=== PATIENT | female | born 1955 | race Caucasian/White ===

== ENCOUNTER 2024-01-13 11:25 | Observation (INO) | payer MEDICARE, SELFPAY ==
[2024-01-13] VITALS (25 sets, daily range): BP systolic 131–166; BP diastolic 54–116; PULSE 55–149; RESP 14–27; TEMP 36.1–36.5; O2SAT 94–100; BMI 35.9
--- NOTE | ~2024-01-13 | XR_ITS ---
EXAMINATION: XR chest 2V DATE: 01/13/2024 12:34 INDICATION: Centralized chest pain and heaviness TECHNIQUE: PA and lateral views of the chest were obtained. COMPARISON: None FINDINGS: Opacities at the lower lung zones on the frontal projection appear to correspond to a prominent parac ardial fat pads on the lateral projection. No other airspace opacities, pulmonary edema, pleural effu vladislav or pneumothorax. Heart size is normal. Median sternotomy wires and mediastinal surgical clips ar e seen, likely from prior coronary artery bypass grafting. Moderate thoracic and lumbar spondylosis. IMPRESSION: 1. Opacities at the anterior lower lung zones most likely related to prominent bilateral paracardial fat pads. No other acute cardiopulmonary disease. Reviewed, dictated and finalized at location B.
--- NOTE | 2024-01-13 11:26 | ECG_ITS ---
SEE SCANNED COPY FOR CONFIRMED REPORT MTDD
[2024-01-13 11:57] LABS: Basophils Absolute Auto 0.1 K/mm3 (0.0-0.1); Basophils Percent Auto 0.5 % (0.2-1.2); Eosinophils Absolute Auto 0.2 K/mm3 (0-0.3); Eosinophils Percent Auto 2.3 % (0-4.4); Hematocrit 41.6 % (37.0-47.0); Hemoglobin 13.3 g/dL (12.0-15.0); Immature Granulocyte Absolute 0.02 K/mm3 (0.00-0.031); Immature Granulocyte Percent A 0.2 % (0-0.5); Lymphocytes Absolute Auto 3.17 K/mm3 (0.9-3.2); Lymphocytes Percent Auto 33.5 % (18.3-44.2); Mean Corpuscular Hemoglobin 29.6 pg (26-34); Mean Corpuscular Volume 92.4 fl (80-100); Mean Platelet Volume 11.2 fl (7.4-10.4); Monocytes Absolute Auto 0.9 K/mm3 (0.1-0.6); Monocytes Percent Auto 9.4 % (2.6-8.5); Neutrophils Absolute Auto 5.1 K/mm3 (1.3-6.7); Neutrophils Percent Auto 54.1 % (45.5-73.1); Platelet Count Result 206 k/mm3 (150-375); Red Cell Distribution Width 12.5 % (11.5-14.5); White Blood Count 9.5 K/mm3 (4.5-10.0)
--- NOTE | 2024-01-13 12:06 | ED.CHESTPAIN ---
HPI - Chest Pain General Chief Complaint: Chest Pain Stated Complaint: chest pain Time Seen by Provider: 01/13/24 11:52 Source: patient History of Present Illness HPI narrative: 68-year-old female presenting for palpitations, feeling chest tightness for 3 hours now. History of AFib in the past. Thinks that maybe what is going on. Also history of CABG x5. No shortness of breath. Related Data Allergies Allergy/AdvReac Type Severity Reaction Status Date / Time Tetanus Vaccines and Toxoid Allergy Unknown Verified 01/13/24 13:02 Review of Systems Review of Systems: All systems reviewed & are unremarkable except as noted in HPI and below Exam Narrative: Constitutional: Generally well appearing, no acute distress Head: Atraumatic, no deformities. Eyes: Pupils equal, round, and reactive to light. Neck: Supple, no tracheal deviation, no JVD. ENMT: Mucous membranes moist Cardiovascular: S1, S2 auscultated. No murmurs, rubs, or gallops. No S3/S4. Normal Distal pulses. No peripheral edema. Respiratory: Lung sounds equal. No wheezes, rales, or rhonchi. Gastrointestinal: Abdomen was soft and non-tender. Non-distended. No rebound or guarding. Genitourinary: Deferred Musculoskeletal: Normal muscle tone and bulk. No obvious deformities or tenderness over extremities. Skin: No rashes. Neurological: Strength 5/5 in extremities. Cranial nerves I-XII grossly intact. Distal sensation intact. Mental Status: Awake, alert and oriented x3. Follows commands Course Vital Signs Vital signs: Vital Signs Temperature 36.5 C 01/13/24 11:26 Pulse Rate 62 01/13/24 11:26 Respiratory Rate 16 01/13/24 11:26 Blood Pressure 156/105 H 01/13/24 11:26 Pulse Oximetry 96 01/13/24 11:26 Temperature 36.5 C 01/13/24 11:26 Pulse Rate 130 H 01/13/24 11:51 Respiratory Rate 19 01/13/24 11:47 Blood Pressure 131/84 01/13/24 11:47 Pulse Oximetry 97 01/13/24 11:51 Oxygen Delivery Room Air 01/13/24 11:51 MDM - Chest Pain MDM Narrative Medical decision making narrative: 68-year-old female presenting for chest tightness, pressure, and concerns for AFib. On exam she is significantly tachycardic ranging from 130-150. Irregularly irregular. EKG confirms atrial flutter with RVR. EKG obtained at 11:29 a.m. showing atrial flutter with rapid ventricular response, rate 145, no ST elevation or depression. Normal axis. Impression: AFib with RVR Attending cardiac workup. IV established. Started IV fluids. Her blood pressure is stable. Planning for Cardizem bolus and drip. 1300-per nursing staff, patient's heart rate is normalized to sinus rhythm at a rate of 65 after she got out of the bathroom. EKG repeated in confirms. EKG obtained at 12:53 p.m. shows sinus rhythm, normal intervals, no ST elevation or depression. No T-wave changes. Impression: No STEMI Holding off on Cardizem at this point. Will admit to hospitalist for atrial flutter with RVR for observation as well as elevated troponin which came back elevated Lab Data 01/13/24 11:36 01/13/24 11:36 Labs: Lab Results 01/13/24 Range/Units 11:36 WBC 9.5 (4.5-10.0) K/mm3 RBC 4.50 (4.2-5.4) M/mm3 Hgb 13.3 (12.0-15.0) g/dL Hct 41.6 (37.0-47.0) % MCV 92.4 (80-100) fl MCH 29.6 (26-34) pg MCHC 32.0 (32-36) g/dl RDW 12.5 (11.5-14.5) % Plt Count 206 (150-375) k/mm3 MPV 11.2 H (7.4-10.4) fl Immature Gran % (Auto) 0.2 (0-0.5) % Neut % (Auto) 54.1 (45.5-73.1) % Lymph % (Auto) 33.5 (18.3-44.2) % [place] % (Auto) 9.4 H (2.6-8.5) % Eos % (Auto) 2.3 (0-4.4) % Baso % (Auto) 0.5 (0.2-1.2) % Lymph # (Auto) 3.17 (0.9-3.2) K/mm3 [place] # (Auto) 0.9 H (0.1-0.6) K/mm3 Eos # (Auto) 0.2 (0-0.3) K/mm3 Baso # (Auto) 0.1 (0.0-0.1) K/mm3 Abs Immat Gran (auto) 0.02 (0.00-0.031) K/mm3 Absolute Neuts (auto) 5.1 (1.3-6.7) K/mm3 Absolute Nucleated RBC 0.000 (0.0-0.012) K/mm3 Nucleated RBC % 0
[2024-01-13 12:10] LABS: INR 1.1; Prothrombin Time 14.5 Seconds (11.1-14.7)
[2024-01-13 12:11] LABS: Partial Thromboplastin Time 28.8 Seconds (22.3-36.8)
[2024-01-13 12:12] LABS: Alanine Aminotransferase 21 U/L (6-35); Albumin Level 4.5 g/dL (3.5-5.1); Alkaline Phosphatase 94 U/L (38-126); Anion Gap 8 mmol/L (4-12); Aspartate Amino Transferase 22 U/L (14-36); Bilirubin,Total 1.2 mg/dL (0.2-1.3); Blood Urea Nitrogen 15 mg/dL (7-17); Calcium 9.4 mg/dL (8.4-10.2); Carbon Dioxide 25 mmol/L (22-30); Chloride 106 mmol/L (98-107); Estimated CRCL calculation 62 ml/min; Estimated Glomerular Filt Rate > 60; Glucose 108 mg/dL (65-110); Lipase 119 U/L (23-300); Potassium 3.5 mmol/L (3.4-5.0); Sodium 139 mmol/L (137-145)
[2024-01-13 12:35] LABS: Troponin I 0.068 ng/mL (0.000-0.034)
[2024-01-13] MEDS: ASPIRIN 81 MG CHEWABLE TABLET 324 MG PO (13:00)
--- NOTE | 2024-01-13 13:01 | ECG_ITS ---
SEE SCANNED COPY FOR CONFIRMED REPORT MTDD
--- NOTE | 2024-01-13 15:03 | ECG_ITS ---
SEE SCANNED COPY FOR CONFIRMED REPORT MTDD
[2024-01-13] MEDS: dilTIAZem HCl INJ 25 MG/5 ML VIAL 10 MG IV PUSH (19:03)
[2024-01-13] MEDS: dilTIAZem 100 MG/100 ML 100 MG/100 ML BAG IV CONT (19:05)
--- NOTE | 2024-01-13 19:10 | PC.NURSE ---
PT WITH C/O PALPITATIONS. NOTED RHYTHM CHANGE, EKG OBTAINED AND SHOWN TO DR COSTA. ORDER FOR DILT OBTAINED AND GIVEN.
--- NOTE | 2024-01-13 19:20 | PC.NURSE ---
DR MERIDA PAGED AND MADE AWARE OF RHYTHM CHANGE AND MEDS GIVEN.
[2024-01-13 19:47] LABS: Troponin I 0.068 ng/mL (0.000-0.034)
--- NOTE | 2024-01-13 21:14 | ADMGEN ---
This patient, Olimpia Farooq, was admitted to IMU Room 212-01 at 2100. Patient/family oriented to hospital policies and general routines including ID bracelet, bed and alarms, visiting hours, pain management, procedures, bathroom and other care routines, personal items, smoking policy, room service/diet, and visiting hours. Information on how to activate the Rapid Response Team has been discussed. Patient/Family are encouraged to report perceived risks to care and to ask questions if they do not understand what they are told or what they should do.
--- NOTE | 2024-01-13 22:32 | PM.IMHP ---
H&P: HPI History of Present Illness Date/Time: 01/13/24 22:32 Chief Complaint: Chest Discomfort Narrative: 68 y/o F presents here with chest discomfort with PMH of CAD, CABG x5, anxiety, prolapsed uterus, ocular histoplasmosis, and AFib postoperative. Patient presented here for further evaluation of palpitations and chest tightness. Patient reported that symptoms began 1 hour prior to arrival to the emergency department, approximately at 10 a.m. and arrived to the ED around 11 am. Patient had similar episode on (December 2023) and HR was 150's and blood pressure was elevated (160/90), and lasted for approximately 3 hours. Resolved with extra dose of her home metoprolol. Patient was resting when the palpitations started today. Some associated shortness of breath (has some SOB at baseline with ambulating long distances). Denying diaphoresis, nausea, vomiting, syncope, sense of doom, fatigue, or weakness. Patient does have history of AFib postoperatively after she had the CABG x5 performed 10 years ago at [facility], was placed on amiodarone for 2 weeks and never had additional episode or treatment. Chest tightness/palpitations resolved spontaneously during ED workup, did not have BM prior to yarsani into NSR. Patient back into AFib RVR around 1900 and placed on diltiazem gtt. No recurrent chest pain or palpitations since drip initiated. Patient not on a blood thinner. Initial VS at presentation: 97.7? F, HR 62, RR 16, 156/105, and 96% on RA. Heart rate varied initially between 62-149. ED workup showed: No leukocytosis, no anemia, no significant electrolyte derangements, creatinine 0.8, and initial troponin 0.068. CXR showed opacities at the anterior lower lung zones most likely related to prominent bilateral pericardial fat pads. No other acute cardiopulmonary disease. Initial EKG showed AFib RVR with rate of 145, no ST elevation or depression, normal axis. Review of Systems Review of Systems: All systems reviewed & are unremarkable except as noted in HPI and below [facility] Past Medical History Medical History (Updated 01/14/24 @ 01:10 by Anjana Ring APRN) Afib postoperative from CABG Anxiety CAD (coronary artery disease) Ocular histoplasmosis Prolapsed uterus Surgical History Surgical History History of coronary artery bypass graft Social History Social History Smoking status: Never smoker Alcohol intake: never Substance use: never Do You Feel Safe in your Home?: Yes Lack of Transportation: YES Lack of Food: Never True Current Housing: I Have Housing Concerned About Future Housing: No Difficulty Paying Gas/Electric Bills: No Difficulty Paying for Meds: No Currently Unemployed: No Education: Associate Degree Difficulty w/ Childcare or Family Care: No Spiritual care concerns: No Meds Home Medications and Allergies Home Medications Medication Instructions Recorded Confirmed Type atorvastatin 10 mg tablet 10 mg PO DAILY 01/13/24 01/13/24 History ergocalciferol (vitamin D2) 1,250 50,000 unit PO WEEKLY 01/13/24 01/13/24 History mcg (50,000 unit) capsule metoprolol tartrate 25 mg tablet 25 mg PO BID 01/13/24 01/13/24 History Allergies Allergy/AdvReac Type Severity Reaction Status Date / Time Tetanus Vaccines and Toxoid Allergy Unknown Verified 01/13/24 13:02 Vital Signs Vital Signs - 24 hr 01/13/24 11:26 01/13/24 11:47 01/13/24 11:51 Temperature 97.7 F Pulse Rate 62 114 H 130 H Respiratory Rate 16 19 Blood Pressure 156/105 H 131/84 Pulse Oximetry 96 95 Oxygen Delivery 01/13/24 11:51 01/13/24 11:50 01/13/24 12:00 Temperature Pulse Rate 149 H 71 Respiratory Rate 21 H 27 H Blood Pressure Pulse Oximetry 97 97 Oxygen Delivery Room Air 01/13/24 12:01 01/13/24 12:15 01/13/24 12:45 Temperature
[2024-01-14] VITALS (10 sets, daily range): BP systolic 108–140; BP diastolic 39–61; PULSE 60–84; RESP 16–18; TEMP 36.1–36.3; O2SAT 94–99
--- NOTE | 2024-01-14 | ECHO_ITS ---
Patient Info Name: Olimpia Farooq Age: 68 years : 1955 Gender: Female Ht: 61 in Wt: 190 lbs BSA: 1.97 m2 HR: 60 bpm BP: 108 / 39 mmHg Heart Rhythm: Sinus Rhythm Technical Quality: Fair Exam Date: 01/14/2024 10:29 AM Exam Location: Echo Lab Patient Status: Outpatient Admit Date: 01/13/2024 Staff Ordering Physician: Anjana Ring APRN Manager Of Sales: Patti Haddad RDCS Attending Provider: Antelmo Gil DO Referring Physician: María Elena PATEL; Exam Type: CA echo doppler color flow Study Info Indications - afib, elevated troponin Complete two-dimensional, color flow and Doppler transthoracic echocardiogram is performed. Summary 1. Complete two-dimensional, color flow and Doppler transthoracic echocardiogram is performed. 2. Normal left ventricular size, thickness and systolic contractility. 3. Modest left atrial enlargement. 4. Mild mitral annular calcium with trivial MR. 5. Trivial aortic regurgitation. Left Ventricle Left ventricular chamber dimension is normal. Left ventricular systolic function is normal, estimated at 65-70%. The left ventricular diastolic function is normal. Right Ventricle Right ventricular chamber dimension is normal. Left Atria Left atrial chamber dimension is mildly enlarged. Right Atria Right atrial chamber dimension is mildly enlarged. Aortic Valve The aortic valve is trileaflet. There is trace aortic valve regurgitation. Pulmonic Valve The pulmonic valve is not well visualized. Mitral Valve The mitral valve has normal leaflets. There is trace mitral valve regurgitation. The mitral valve annulus is mildly calcified. Tricuspid Valve The tricuspid valve leaflets are normal. There is trace tricuspid valve regurgitation. Pericardium/Pleural The pericardium appears normal. Aorta The aortic root size at the sinus of Valsalva is normal. Left Ventricular Outflow Tract Name Value Normal LVOT 2D LVOT Diameter 2.0 cm LVOT Doppler LVOT Peak Gradient 5 mmHg LVOT Mean Gradient 2 mmHg LVOT VTI 25 cm LVOT VTI/AV VTI Ratio 0.8 LVOT Stroke Volume 76 ml LVOT CO 4.2 l/min LVOT CI 2.2 l/min/m2 Pulmonic Valve Name Value Normal RVOT Doppler RVOT Peak Gradient 1 mmHg PV Doppler PV Peak Gradient 3 mmHg Mitral Valve Name Value Normal MV Doppler MV [place] 703 cm/s2 MV PHT
[2024-01-14 04:20] LABS: Basophils Percent Auto 0.4 % (0.2-1.2); Eosinophils Absolute Auto 0.3 K/mm3 (0-0.3); Eosinophils Percent Auto 3.1 % (0-4.4); Immature Granulocyte Absolute 0.03 K/mm3 (0.00-0.031); Immature Granulocyte Percent A 0.3 % (0-0.5); Lymphocytes Absolute Auto 2.68 K/mm3 (0.9-3.2); Lymphocytes Percent Auto 30.1 % (18.3-44.2); Mean Corpuscular HGB Conc 32.4 g/dl (32-36); Mean Corpuscular Hemoglobin 29.8 pg (26-34); Mean Corpuscular Volume 91.8 fl (80-100); Mean Platelet Volume 11.2 fl (7.4-10.4); Monocytes Absolute Auto 0.9 K/mm3 (0.1-0.6); Monocytes Percent Auto 9.9 % (2.6-8.5); Neutrophils Percent Auto 56.2 % (45.5-73.1); Platelet Count Result 186 k/mm3 (150-375); Red Blood Count 4.03 M/mm3 (4.2-5.4); Red Cell Distribution Width 12.7 % (11.5-14.5); White Blood Count 8.9 K/mm3 (4.5-10.0)
[2024-01-14 04:27] LABS: Alanine Aminotransferase 18 U/L (6-35); Albumin Level 3.7 g/dL (3.5-5.1); Alkaline Phosphatase 85 U/L (38-126); Anion Gap 2 mmol/L (4-12); Aspartate Amino Transferase 21 U/L (14-36); Bilirubin,Total 0.9 mg/dL (0.2-1.3); Blood Urea Nitrogen 15 mg/dL (7-17); Calcium 8.8 mg/dL (8.4-10.2); Carbon Dioxide 28 mmol/L (22-30); Chloride 107 mmol/L (98-107); Estimated CRCL calculation 75 ml/min; Estimated Glomerular Filt Rate > 60; Glucose 96 mg/dL (65-110); Magnesium 2.1 mg/dL (1.6-2.3); Potassium 3.8 mmol/L (3.4-5.0); Sodium 137 mmol/L (137-145)
[2024-01-14] MEDS: METOPROLOL TARTRATE 25 MG TABLET PO (08:36)
[2024-01-14] MEDS: ERGOCALCIFEROL 50,000 UNITS CAPSULE 50000 UNITS PO (08:36)
[2024-01-14] MEDS: ATORVASTATIN 10 MG TABLET PO (08:36)
--- NOTE | 2024-01-14 13:27 | PM.CNCAR ---
Assessment and Plan Assessment and plan (1) Atrial flutter with rapid ventricular response: Code(s): I48.92 - Unspecified atrial flutter Status: Acute Plan this is a 68-year-old lady with coronary artery disease and previous bypass grafting 10 years ago doing stable with no recent ischemic symptoms. She entered the hospital with an episode of symptomatic atrial flutter with RVR. She has a very modestly elevated troponin level that is a result of this tachycardia I do not believe there is any evidence or reason to think about an acute coronary syndrome in this setting. She is now in sinus rhythm and is asymptomatic. I would recommend advancing her beta-sugey dosage and transition her to metoprolol succinate at 50 mg daily. I he also should be anticoagulated I will order Xarelto 20 mg daily. At this point since she is asymptomatic and in sinus rhythm she can be discharged from my point of view for outpatient follow-up with my partner, Dr. Glass. If you have any questions regarding this situation please let me know Flynn Gonzalez MD [facility] History of Present Illness History of Present Illness Consult date/time: 01/14/24 13:27 Reason For Visit: Atrial Flutter w/RVR Narrative: This is a very pleasant 68-year-old woman I am seeing at the request of the hospitalist because of palpitations, tachycardia and some chest discomfort that occurred last evening the resulted in her seeking evaluation in the emergency room. She is not known to me prior to this consultation but she has a history of ischemic heart disease with previous surgical revascularization. Upon arrival in the emergency room she was noted to be tachycardic and in atrial flutter with rapid ventricular response. She was seen by the physician in plans were in place to start her on IV diltiazem. It looks like before she received any of that she converted back to sinus rhythm and then was admitted to the hospital for further evaluation. Following conversion to sinus she became asymptomatic. This patient has a history of ischemic heart disease and underwent coronary bypass grafting in 2013 at [facility]. She has been followed in our office since then initially by Dr. Ho and more recently has been transferred to the office of Dr. Glass. I believe she had a history of some postop atrial fibrillation but other that has been doing well. Her last office appointment was in October of this year at which time she had some momentary episodes of palpitations but nothing that lasted more than a few seconds. An echocardiogram was done at that time which looks fine is her ejection fraction was visually estimated to be 60% and she had grade 1 diastolic noncompliance there was a trivial amount of mitral regurgitation and biatrial dilation. Her medical regimen at baseline consists of low-dose aspirin, atorvastatin and metoprolol tartrate 25 mg daily. Review of Systems Constitutional: Constitutional: Reports no additional constitutional complaints Eyes: Eyes: Reports no additional eye complaints ENT: Reports system reviewed and no additional complaints, except as documented Cardiovascular: Cardiovascular: Reports as per HPI Respiratory: Respiratory: Reports no additional respiratory complaints Gastrointestinal: Gastrointestinal: Reports no additional gastrointestinal complaints Musculoskeletal: Musculoskeletal: Reports no additional musculoskeletal complaints Integumentary/Breasts: Skin/Breast: Reports system reviewed and no additional complaints, except as docu Neurologic: Reports system reviewed and no additional complaints, except as documented Endocrine: Endocrine: Reports no additional endocrine complaints Hematologic/Lymphatic: Hematologic/Lymphatic: Reports no additional hematologic/lymphatic complaints Allergic/Immunologic: Allergic/Immunologic: Reports no additional allergic/immunologic complaints PMFSH Past Medical History Medical His
--- NOTE | 2024-01-14 16:03 | PM.DS ---
DS: Admitting Diagnosis Discharge Date 01/14/24 Admitting Diagnosis Chest Discomfort DS: Discharge Diagnosis Discharge Diagnosis (1) Atrial flutter with rapid ventricular response: Code(s): I48.92 - Unspecified atrial flutter Status: Acute (2) Elevated troponin: Code(s): R79.89 - Other specified abnormal findings of blood chemistry Status: Acute DS: Summary Hospital Course Reason for hospitalization: 68yo female with CAD with CABG 10yrs ago complicated by post-op AFib here for chest discomfort. Please see H&P for details. Hospital Course: In the emergency room, patient's heart rate varied to as high as 150. Troponin was elevated to 0.07. Chest x-ray showed opacities in the anterior lower lung zones most likely related to prominent bilateral pericardial fat pads. EKG showed atrial fibrillation with RVR. No ST elevation or depression. She was given aspirin. She was started on diltiazem. Diltiazem drip was stopped when she converted to normal sinus rhythm. She was resumed on her metoprolol. Cardiology was consulted. Echocardiogram showed EF of 65-70% with normal diastolic function. No significant valvular disease. TSH was normal. She had cut clinical improvement. She was able be discharged home on 01/14/2024. Status at Discharge Cognitive/behavioral status at discharge: stable Time Spent with Patient Time attestation: Total time spent providing and/or coordinating discharge services: 32 minutes Time spent: Greater than 30 minutes Exam Narrative: AF 97.3 122/61 79 16 95% ra Gen - NARD Chest - CTA bilaterally, nml RR CV - RRR S1/S2 Abd - Soft, NT/ND, Positive BS Ext - No pedal edema Psych - Nml mood and affect Skin - Warm and dry DS: Data Data Completed and Pending Labs on day of discharge: Labs from last 24 hours 01/14/24 01/13/24 03:34 19:11 WBC 8.9 RBC 4.03 L Hgb 12.0 Hct 37.0 MCV 91.8 MCH 29.8 MCHC 32.4 RDW 12.7 Plt Count 186 MPV 11.2 H Immature Gran % (Auto) 0.3 Neut % (Auto) 56.2 Lymph % (Auto) 30.1 [place] % (Auto) 9.9 H Eos % (Auto) 3.1 Baso % (Auto) 0.4 Lymph # (Auto) 2.68 [place] # (Auto) 0.9 H Eos # (Auto) 0.3 Baso # (Auto) 0.0 Abs Immat Gran (auto) 0.03 Absolute Neuts (auto) 5.0 Absolute Nucleated RBC 0.000 Nucleated RBC % 0.0 Sodium 137 Potassium 3.8 Chloride 107 Carbon Dioxide 28 Anion Gap 2 L BUN 15 Creatinine 0.60 L Estim Creat Clear Calc 75 Estimated GFR > 60 Glucose 96 Calcium 8.8 Magnesium 2.1 Total Bilirubin 0.9 AST 21 ALT 18 Alkaline Phosphatase 85 Troponin I 0.068 H* Total Protein 7.0 Albumin 3.7 TSH (Reflex) 2.710 Discharge Plan Discharge Attending physician on discharge: Buck Mo Consulting providers: Flynn Gonzalez Discharging Clinician: Buck Mo Anticipated Discharge Date/Time: 01/14/24 16:09 Patient Disposition: Home, Self-Care Activity: as tolerated Diet: heart healthy Discharge Instructions: Take precautions to avoid falls. Rise slowly from a lying or sitting position. Pause before standing or walking. Contact your doctor or call 911 and come to the Emergency Room if you have palpitations or other worrisome symptoms. Avoid NSAIDs (ibuprofen, naproxen, Aleve). Tylenol is safe to take. Follow-up with your primary care provider in 1-2 weeks. Please call for appointment. Follow-up with Cardiology in 1-2 weeks. Please call for an appointment. Thank you for using [facility] for your health care needs. Patient Instructions: Antibiotic Form Stand Alone Forms: General Discharge Information Follow-up/Referrals: CHIQUITA,RODRIGUEZ NORRIS [Primary Care Provider] - Tana Glass MD [Physician] - Call for Appointment Discharge Medications: New Xarelto 20 mg Tablet 20 mg PO DAILY@1700 Qty: 30 1RF metoprolol succinate 50 mg Tablet Extended Rele
[2024-01-14] MEDS: RIVAROXABAN 20 MG TABLET PO (16:25)
== END 2024-01-14 17:00 | disposition home or self-care (01) ==
LOC: ANHED 13:15 → ANHIMU 01-14 10:26
PROVIDERS: Emergency Medicine; Student in an Organized Health Care Education/Training Program; Admitting Provider Student in an Organized Health Care Education/Training Program; Emergency Provider Emergency Medicine; PCP Nurse Practitioner Family; Visit Provider Internal Medicine
DX: I48.92 Unspecified atrial flutter (principal); R79.89 Other specified abnormal findings of blood chemistry; I25.10 Atherosclerotic heart disease of native coronary artery without angina pectoris; Z95.1 Presence of aortocoronary bypass graft; F41.9 Anxiety disorder, unspecified; B39.9 Histoplasmosis, unspecified; E66.9 Obesity, unspecified; Z68.35 Body mass index [BMI] 35.0-35.9, adult; I97.190 Other postprocedural cardiac functional disturbances following cardiac surgery; I48.20 Chronic atrial fibrillation, unspecified; Z79.82 Long term (current) use of aspirin; Z79.899 Other long term (current) drug therapy
CPT/HCPCS: 36415; 71046; 80053; 83690; 83735; 84443; 84484; 85025; 85610; 85730; 93005; 93306; 96365; 96366; 99285; A9270; G0378